=== PATIENT | male | born 1935 | race Caucasian/White ===

== ENCOUNTER 2021-12-27 00:06 | Outpatient (CLI) | payer MEDICARE, OTHER | END 2021-12-27 00:07 | disposition critical access hospital (66) | LOC: EMS 00:06 | DX: I46.9 Cardiac arrest, cause unspecified (principal) | CPT/HCPCS: A0425; A0433 ==

== ENCOUNTER 2021-12-27 00:13 | Emergency (ER) | payer MEDICARE, OTHER ==
--- NOTE | 2021-12-27 00:11 | ED Physician Documentation ---
PD HPI CPR - Stated complaint Stated Complaint: ROSC - History obtained from History obtained from: Family ( (in ED at bedside)), EMS - History of Present Illness Timing - onset: Enter time (approximately 23:20) Preceding symptoms: Unknown (had not been saying anything to about any symptoms) Witnessed: Arrest not witnesssed Fall: No fall Bystander CPR: Bystander CPR EMS findings: Unresponsive, Apneic, Pulseless, Asystole Treatment MEDICAL DELIVERY TECHNICIAN: CPR, Defibrillated, Intubated, Epi, Amiodarone, Atropine, Sodium Bicarb, IV, IO Advanced directive: Full code - Additional information Additional information: JAMARDeborah. says that she saw her going off to bed while she was washing dishes. She says he gave no indication he was having any symptoms and he did not appear unusual in any way. She checked on him approximately 4-5 minutes later and found him on the bed, face up, not breathing. She immediately noticed he was not responding to her; she called 911 and started CPR as they instructed her to do so. EMS estimates they arrived 15 minutes later. They found patient apneic, pulseless, and in asystole. They performed CPR and gave epinephrine per ACLS algorithm. After 3 rounds (given 3 doses of 1mg epinephrine), he was found to be in ventricular fibrillation. He received 2 defibrillating shocks and then had ROSC. He subsequently lost pulses, was given another 1mg epinephrine and 300mg Amiodarone as well as 1 amp sodium bicarb. He then again had ROSC. Shortly before arrival to ED, he had bradycardia for which he was given 1mg atropine. He arrives intubated (ETT) and unresponsive. Did not receive any sedatives nor paralytics en route. Review of Systems Unable to obtain: Intubated PD PAST MEDICAL HISTORY - Past Medical History Cardiovascular: Other (he is on antihypertensives, although says she does not think he has high blood pressure) - Present Medications Home Medications: Ambulatory Orders Medication Instructions Recorded Confirmed Atenolol [Tenormin] 50 mg PO DAILY 12/27/21 12/27/21 Losartan [Cozaar] 50 mg PO DAILY 12/27/21 12/27/21 Metoprolol Succinate [Toprol Xl] 25 mg PO ONCE 12/27/21 12/27/21 Tadalafil [Cialis] 5 mg PO PRN PRN 12/27/21 12/27/21 metFORMIN [Glucophage] 500 mg PO BID 12/27/21 12/27/21 - Allergies Allergies/Adverse Reactions: Allergies Allergy/AdvReac Type Severity Reaction Status Date / Time No Known Drug Allergies Allergy Verified 12/27/21 02:19 - Living Situation Living Situation: reports: With spouse/s.o. Living Arrangement: reports: At home PD ED PE NORMAL - Vitals Vital signs reviewed: Yes - General General: Well developed/nourished - HEENT HEENT: Atraumatic, Other - Cardiac Cardiac: RRR, No murmur - Abdomen Abdomen: Soft, Non distended - Derm Derm: Normal color, Warm and dry - Extremities Extremities: No edema - Neuro Eye Opening: None Motor: None Verbal: None GCS Score: 3 PD ED PE EXPANDED - General General: Unresponsive, Other (intubated) - HEENT HEENT: Other (pupils equal, sluggishly reactive to light, mid-size) - Respiratory Respiratory: Clear to ausultation shravan, Other (intubated) Results - Vitals Vitals: Vital Signs - 24 hr 12/27/21 12/27/21 12/27/21 00:15 00:20 00:34 Temperature Heart Rate 75 57 L Respiratory Rate Blood Pressure 60/47 L O2 Saturation 83 L 100 12/27/21 12/27/21 12/27/21 00:42 00:59 01:00 Temperature 34.8 C L 35.1 C L Heart Rate 80 80 70 Respiratory 15 20 22 Rate Blood Pressure 113/86 H 104/57 L 127/72 O2 Saturation 97 88 L 12/27/21 12/27/21 12/27/21 01:04 01:05 01:16 Temperature 35.1 C L 35 C L Heart Rate 83 79 Respiratory 21 22 20 Rate Blood Pressure 85/62 L O2 Saturation 90 L 91 L 88 L 12/27/21 12/27/21 12/27/21 01:23 01:29 01:32 Temperature 33.8 C L 34 C L 34.4 C L Heart Rate 75 70 65 Respiratory 23 34 H 21 Rate Blood Pressure 94/61 90/54 L O2 Saturation 92 93 93 12/27/21 12/27/21 12/27/21 01:36 01:43 01:47 Temperature Heart Rate 70 Respiratory 20 Rate Blood Pressure 97/58 L 89/56 L 85/48 L O2 Saturation 92 12/27/21 12/27/21 12/27/21 02:00 02:01 02:09 Temperature 34.8 C L 34.8 C L 34.8 C L Heart Rate 68 69 61 Respiratory 25 H 12 17 Rate Blood Pressure 84/52 L 90/49 L 93/52 L O2 Saturation 93 92 95 12/27/21 12/27/21 12/27/21 02:22 02:23 02:27 Temperature 34.8 C L 34.8 C L Heart Rate 65 64 65 Respiratory 16 Rate Blood Pressure 87/56 L 95/62 O2 Saturation 95 98 12/27/21 12/27/21 02:30 03:00 Temperature 34.8 C L 35 C L Heart Rate 58 L 68 Respiratory 16 16 Rate Blood Pressure 95/55 L 110/60 O2 Saturation 98 96 Oxygen O2 Source Mechanical ventilator - EKG (time done) No standard instances Other comments: Other comments (multiple attempts to obtain EKG, but there is too much artifact on EKGs to allow for reasonable interpretation) - Labs Labs: Laboratory Tests 12/27/21 12/27/21 12/27/21 00:21 00:21 00:21 WBC 4.9 RBC 3.83 L Hgb 13.3 L Hct 40.5 L MCV 105.7 H MCH 34.7 H MCHC 32.8 RDW 13.7 Plt Count 119 L MPV 9.3 Neut # (Auto) Not Reportable Lymph # (Auto) Not Reportable [place] # (Auto) Not Reportable Eos # (Auto) Not Reportable Baso # (Auto) Not Reportable Absolute Nucleated RBC Not Reportable Total Counted 100 Band Neuts % (Manual) 5 Abnorm Lymph % (Manual) 0 Nucleated RBC % Not Reportable Neutrophils # (Manual) 1.1 L Lymphocytes # (Manual) 3.6 H Monocytes # (Manual) 0.0 Eosinophils # (Manual) 0.1 Basophils # (Manual) 0.0 Differential Comment MANUAL DIFFERENTIAL WBC Morphology NORMAL APPEARANCE Platelet Estimate DECREASED (<130,000) Platelet Morphology NORMAL APPEARANCE RBC Morph Micro Appear NORMAL APPEARANCE PT 13.0 H INR 1.2 APTT 34.1 H Bld Gas Analysis Time Sample Site ABG pH ABG pCO2 ABG pO2 ABG HCO3 ABG Total CO2 ABG O2 Saturation ABG Base Excess Dharmesh Test Respiration Rate O2 Delivery Device Vent Mode FiO2 Tidal Volume PEEP Sodium 138 Potassium 3.6 Chloride 100 L Carbon Dioxide 19 L Anion Gap 19.0 H BUN 22 H Creatinine 1.4 H Estimated GFR (MDRD) 48 L Glucose 357 H Calcium 8.6 Phosphorus 6.8 H Magnesium 2.1 Total Bilirubin 0.6 AST 125 H ALT 97 H Alkaline Phosphatase 52 Troponin I High Sens Total Protein 6.2 L Albumin 3.4 Globulin 2.8 Albumin/Globulin Ratio 1.2 Lipase 60 H Urine Color Urine Clarity Urine pH Ur Specific [place] Urine Protein Urine Glucose (UA) Urine Ketones Urine Occult Blood Urine Nitrite Urine Bilirubin Urine Urobilinogen Ur Leukocyte Esterase Urine RBC Urine WBC Ur Squamous Epith Cells Urine Bacteria Ur Microscopic Review Urine Culture Comments Nasal Adenovirus (PCR) Nasal B. parapertussis DNA (PCR) Nasal Coronavir 229E PCR Nasal Coronavir HKU1 PCR Nasal Coronavir NL63 PCR Nasal Coronavir OC43 PCR Nasal Enterovir/Rhinovir PCR Nasal Influenza B PCR Nasal Influenza A PCR Nasal Parainfluen 1 PCR Nasal Parainfluen 2 PCR Nasal Parainfluen 3 PCR Nasal Parainfluen 4 PCR Nasal RSV (PCR) Nasal B.pertussis DNA PCR Nasal C.pneumoniae (PCR) [place] Human Metapneumo PCR Nasal M.pneumoniae (PCR) Nasal SARS-CoV-2 (PCR) 12/27/21 12/27/21 12/27/21 00:21 01:00 02:06 WBC RBC Hgb Hct MCV MCH MCHC RDW Plt Count MPV Neut # (Auto) Lymph # (Auto) [place] # (Auto) Eos # (Auto) Baso # (Auto) Absolute Nucleated RBC Total Counted Band Neuts % (Manual) Abnorm Lymph % (Manual) Nucleated RBC % Neutrophils # (Manual) Lymphocytes # (Manual) Monocytes # (Manual) Eosinophils # (Manual) Basophils # (Manual) Differential Comment WBC Morphology Platelet Estimate Platelet Morphology RBC Morph Micro Appear PT INR APTT Bld Gas Analysis Time 0214 Sample Site RIGHT RADIAL ABG pH 7.17 L* ABG pCO2 42 ABG pO2 73 L ABG HCO3 14.9 L ABG Total CO2 16.2 L ABG O2 Saturation 90 L ABG Base Excess -13.1 L Dharmesh Test POSITIVE Respiration Rate 16 O2 Delivery Device VENTILATOR Vent Mode ASSIST/CONTROL FiO2 100.00 Tidal Volume 555 PEEP 8 Sodium Potassium Chloride Carbon Dioxide Anion Gap BUN Creatinine Estimated GFR (MDRD) Glucose Calcium Phosphorus Magnesium Total Bilirubin AST ALT Alkaline Phosphatase Troponin I High Sens 65.6 H* Total Protein Albumin Globulin Albumin/Globulin Ratio Lipase Urine Color Urine Clarity Urine pH Ur Specific [place] Urine Protein Urine Glucose (UA) Urine Ketones Urine Occult Blood Urine Nitrite Urine Bilirubin Urine Urobilinogen Ur Leukocyte Esterase Urine RBC Urine WBC Ur Squamous Epith Cells Urine Bacteria Ur Microscopic Review Urine Culture Comments Nasal Adenovirus (PCR) NOT DETECTED Nasal B. parapertussis DNA (PCR) NOT DETECTED Nasal Coronavir 229E PCR NOT DETECTED Nasal Coronavir HKU1 PCR NOT DETECTED Nasal Coronavir NL63 PCR NOT DETECTED Nasal Coronavir OC43 PCR NOT DETECTED Nasal Enterovir/Rhinovir PCR NOT DETECTED Nasal Influenza B PCR NOT DETECTED Nasal Influenza A PCR NOT DETECTED Nasal Parainfluen 1 PCR NOT DETECTED Nasal Parainfluen 2 PCR NOT DETECTED Nasal Parainfluen 3 PCR NOT DETECTED Nasal Parainfluen 4 PCR NOT DETECTED Nasal RSV (PCR) NOT DETECTED Nasal B.pertussis DNA PCR NOT DETECTED Nasal C.pneumoniae (PCR) NOT DETECTED [place] Human Metapneumo PCR NOT DETECTED Nasal M.pneumoniae (PCR) NOT DETECTED Nasal SARS-CoV-2 (PCR) NOT DETECTED 12/27/21 02:15 WBC RBC Hgb Hct MCV MCH MCHC RDW Plt Count MPV Neut # (Auto) Lymph # (Auto) [place] # (Auto) Eos # (Auto) Baso # (Auto) Absolute Nucleated RBC Total Counted Band Neuts % (Manual) Abnorm Lymph % (Manual) Nucleated RBC % Neutrophils # (Manual) Lymphocytes # (Manual) Monocytes # (Manual) Eosinophils # (Manual) Basophils # (Manual) Differential Comment WBC Morphology Platelet Estimate Platelet Morphology RBC Morph Micro Appear PT INR APTT Bld Gas Analysis Time Sample Site ABG pH ABG pCO2 ABG pO2 ABG HCO3 ABG Total CO2 ABG O2 Saturation ABG Base Excess Dharmesh Test Respiration Rate O2 Delivery Device Vent Mode FiO2 Tidal Volume PEEP Sodium Potassium Chloride Carbon Dioxide Anion Gap BUN Creatinine Estimated GFR (MDRD) Glucose Calcium Phosphorus Magnesium Total Bilirubin AST ALT Alkaline Phosphatase Troponin I High Sens Total Protein Albumin Globulin Albumin/Globulin Ratio Lipase Urine Color LT RED Urine Clarity CLEAR Urine pH 6.0 Ur Specific [place] 1.015 Urine Protein 100 H Urine Glucose (UA) 250 H Urine Ketones NEGATIVE Urine Occult Blood LARGE H Urine Nitrite POSITIVE H Urine Bilirubin NEGATIVE Urine Urobilinogen 0.2 (NORMAL) Ur Leukocyte Esterase NEGATIVE Urine RBC TNTC H Urine WBC 0-3 Ur Squamous Epith Cells RARE Squamous Urine Bacteria Few Ur Microscopic Review INDICATED Urine Culture Comments INDICATED Nasal Adenovirus (PCR) Nasal B. parapertussis DNA (PCR) Nasal Coronavir 229E PCR Nasal Coronavir HKU1 PCR Nasal Coronavir NL63 PCR Nasal Coronavir OC43 PCR Nasal Enterovir/Rhinovir PCR Nasal Influenza B PCR Nasal Influenza A PCR Nasal Parainfluen 1 PCR Nasal Parainfluen 2 PCR Nasal Parainfluen 3 PCR Nasal Parainfluen 4 PCR Nasal RSV (PCR) Nasal B.pertussis DNA PCR Nasal C.pneumoniae (PCR) [place] Human Metapneumo PCR Nasal M.pneumoniae (PCR) Nasal SARS-CoV-2 (PCR) - Rads (name of study) chest xray Radiology: Prelim report reviewed, See rad report CT head Radiology: Prelim report reviewed, See rad report PD MEDICAL DECISION MAKING - ED course Complexity details: reviewed results, re-evaluated patient, considered differential, d/w family ED course: presents intubated after cardiopulmonary arrest. Patient's says he has no known cardiac history. He required several rounds of epinephrine, along with amiodarone, two defibrillating shocks, sodium bicarbinate, and atropine. He is put on an epinephrine drip in ED which required some upward titration for hypotension (which responded to the increased rate). He also exhibited movement mid-way through ED stay, not purposeful movement but appeared to be "bucking the tube", and for this he is given propofol as well as one-time dose of versed. D/W Dr. Kern, radarman at [facility]. She requests CTH and will accept transfer if there are no remarkable findings on this study (such as ICH or evidence of acute anoxic injury). The CT shows age-related changes and chronic ischemic changes. He has mildly elevated hs-tNc, as well as mild elevations of bun/creatinine, lipase, AST/ALT. No previous results for comparison. Given the situation, this might represent anoxic injury to multiple organs. Dr. Kern accepts transfer to [facility] ICU. He is sent by [employer]. He maintained pulses and adequate blood pressures throughout ED stay (some readings of 80s SBP which responded to increase in epinephrine drip rate) - Critical Care Time(min): 40 Time Includes: Direct patient care, Reassess patient, Document care, Coordinate care, Family consult for tx dec, See progress note Data interpretation: Labs, Pulse ox, ABG, CXR, See progress note Procedures included in critical care time: Peripheral IV, Ventilator mgmt, See progress note Procedures excluded from critical care time: See progress note Departure - Departure Disposition: 02 Transfer Acute Care Hosp Clinical Impression: Cardiopulmonary arrest Condition: Critical Discharge Date/Time: 12/27/21 03:37
[2021-12-27] MEDS ORDERED: SODIUM CHLORIDE 0.9% 1,000 ML IV STA ×3 (00:27→01:08)
[2021-12-27] MEDS ORDERED: EPINEPHrine 4 MG in DEXTROSE 5% 246 ML IV STA (00:28)
[2021-12-27] MEDS ORDERED: EPINEPHrine 1 MG/ML AMP ONE (00:35)
[2021-12-27 00:40] LABS: BASOPHILS % (AUTO) 0.4 %; EOSINOPHILS % (AUTO) 2.2 %; HCT - HEMATOCRIT 40.5 % (42.0-52.0); HGB - HEMOGLOBIN 13.3 g/dL (14.0-18.0); LYMPHOCYTES % (AUTO) 73.3 %; MEAN CORPUSCULAR HEMOGLOBIN 34.7 pg (27.0-31.0); MEAN CORPUSCULAR HGB CONC 32.8 g/dL (32.0-36.0); MEAN CORPUSCULAR VOLUME 105.7 fL (80.0-94.0); MEAN PLATELET VOLUME 9.3 fL (7.4-11.4); MONOCYTES % (AUTO) 2.9 %; NEUTROPHILS % (AUTO) 17.9 %; PLT - PLATELET COUNT 119 10^3/uL (130-450); RED BLOOD COUNT 3.83 10^6/uL (4.70-6.10); RED CELL DISTRIBUTION WIDTH 13.7 % (12.0-15.0); WHITE BLOOD COUNT 4.9 x10^3/uL (4.8-10.8)
[2021-12-27 00:42] LABS: INR 1.2 (0.8-1.2)
[2021-12-27 00:45] LABS: ALBUMIN 3.4 g/dL (3.2-5.5); ALBUMIN/GLOBULIN RATIO 1.2 (1.0-2.2); BILIRUBIN,TOTAL 0.6 mg/dL (0.2-1.0); CALCIUM 8.6 mg/dL (8.5-10.3); CREATININE 1.4 mg/dL (0.6-1.2); MAGNESIUM 2.1 mg/dL (1.7-2.8); PHOSPHORUS 6.8 mg/dL (2.5-4.6); POTASSIUM 3.6 mmol/L (3.5-5.0); TOTAL PROTEIN 6.2 g/dL (6.7-8.2)
[2021-12-27] MEDS ORDERED: PROPOFOL 1000 MG/100 ML 1,000 MG/100 ML BOTTLE IV STA (00:45)
[2021-12-27 00:47] LABS: ABNORMAL LYMPHS % (MANUAL) 0 %
[2021-12-27 00:49] LABS: PARTIAL THROMBOPLASTIN TIME 34.1 secs (24.9-33.3)
[2021-12-27] MEDS ORDERED: PROPOFOL 1000 MG/100 ML 1,000 MG/100 ML BOTTLE IV ONE (00:51)
[2021-12-27 00:54] LABS: BAND NEUTROPHILS % (MANUAL) 5 %; EOSINOPHILS # (MANUAL) 0.1 10^3/uL (0-0.7); LYMPHOCYTES # (MANUAL) 3.6 10^3/uL (1.5-3.5); LYMPHOCYTES % (MANUAL) 74 %; NEUTROPHILS # (MANUAL) 1.1 10^3/uL (1.5-6.6); RBC MORPHOLOGY (MULTIPLE) NORMAL APPEARANCE (NORMAL)
[2021-12-27 00:55] LABS: DIFFERENTIAL COMMENT MANUAL DIFFERENTIAL; PLATELET ESTIMATE, MANUAL DECREASED (<130,000) (NORMAL); PLATELET MORPHOLOGY NORMAL APPEARANCE (NORMAL); WBC MORPHOLOGY (MULTIPLE) NORMAL APPEARANCE (NORMAL)
--- NOTE | 2021-12-27 01:13 | XRAY Report ---
PROCEDURE: Chest 1 View X-Ray INDICATIONS: post-cardiac arrest TECHNIQUE: One view of the chest was acquired. COMPARISON: None FINDINGS: Surgical changes and devices: Endotracheal tube tip 8 cm above the jason. Nasogastric tube tip at th e GE junction. Multiple overlying leads and wires present. Lungs and pleura: Heart size enlarged. Moderate vascular congestion. No pneumothorax Mediastinum: Mediastinal contours appear normal. Heart size is normal. Bones and chest wall: No suspicious bony lesions. Overlying soft tissues appear unremarkable. IMPRESSION: 1. Endotracheal tube tip 8 cm above the jason. 2. Nasogastric tube tip at the GE junction. Recommend 15 to 15 cm of advancement. 3. Cardiomegaly and moderate vascular congestion Reviewed by: Guilherme Paez MD on 12/27/2021 12:12 AM IRINA Approved by: Guilherme Paez MD on 12/27/2021 12:12 AM IRINA Station ID: [id number]
[2021-12-27] MEDS ORDERED: MIDAZOLAM 2 MG/2 ML VIAL IVP STA (01:29)
[2021-12-27 01:56] LABS: B. PARAPERTUSSIS- RESP PCR PAN NOT DETECTED; B. PERTUSSIS- RESP PCR PANEL NOT DETECTED; C. PNEUMONIAE- RESP PCR PANEL NOT DETECTED; CORONAVIRUS 229E-RESP PCR NOT DETECTED; CORONAVIRUS HKU1-RESP PCR NOT DETECTED; CORONAVIRUS NL63-RESP PCR NOT DETECTED; CORONAVIRUS OC43-RESP PCR NOT DETECTED; HUMAN METAPNEUMOVIRUS NOT DETECTED; INFLUENZA A- RESP PCR PANEL NOT DETECTED; INFLUENZA B - RESP PCR PANEL NOT DETECTED; M. PNEUMONIAE- RESP PCR PANEL NOT DETECTED; PARAINFLUENZA VIRUS 1 NOT DETECTED; PARAINFLUENZA VIRUS 2 NOT DETECTED; PARAINFLUENZA VIRUS 3 NOT DETECTED; PARAINFLUENZA VIRUS 4 NOT DETECTED; RHINOVIRUS/ENTEROVIRUS NOT DETECTED; RSV- RESP PCR PANEL NOT DETECTED; SARS-CoV-2 -RESP PCR PANEL NOT DETECTED
--- NOTE | 2021-12-27 02:04 | CT Report ---
PROCEDURE: CT brain without contrast INDICATIONS: post-CPR. Altered mental status TECHNIQUE: Noncontrast 4.5 mm thick angled axial sections acquired from the foramen magnum to the vertex. For r adiation dose reduction, the following was used: automated exposure control, adjustment of mA and/or kV according to patient size. COMPARISON: None. FINDINGS: Image quality: Excellent. CSF spaces: Basal cisterns are patent. No extra-axial fluid collections. Ventricles are normal in size and shape. Brain: No midline shift. No intracranial masses or hemorrhage. [place]-white matter interface is with in appropriate limits. Cerebral and cerebellar atrophy noted Skull and face: Calvarium and visualized facial bones are intact, without suspicious lesions. Bilat eral intraocular lens replacements noted. Sinuses: Visualized sinuses and mastoids are clear. IMPRESSION: Intracranial atrophy and chronic ischemic change without acute hemorrhage or mass effect . Reviewed by: Guilherme Paez MD on 12/27/2021 1:02 AM IRINA Approved by: Guilherme Paez MD on 12/27/2021 1:02 AM IR[place] Station ID: [id number]
[2021-12-27 02:24] LABS: ABG BASE EXCESS -13.1 mmol/L (-2.0-3.0); ABG HCO3 14.9 mmol/L (22.0-26.0); ABG OXYGEN SATURATION 90 % (94-98); ABG PCO2 42 mmHg (34-45); ABG PO2 73 mmHg (80-100); ABG TCO2 16.2 MMOL/L (21.0-29.0); ALLEN TEST POSITIVE
[2021-12-27 02:27] LABS: ABG MODE OF VENTILATION ASSIST/CONTROL; ABG PH 7.17 (7.35-7.45); ABG RESPIRATORY RATE 16 b/min
[2021-12-27 02:31] LABS: BILIRUBIN,URINE NEGATIVE (NEGATIVE); GLUCOSE, URINE (UA) 250 mg/dL (NEGATIVE); KETONES,URINE (UA) NEGATIVE (NEGATIVE); LEUKOCYTE ESTERASE, URINE NEGATIVE (NEGATIVE); NITRITE,URINE POSITIVE (NEGATIVE); OCCULT BLOOD,URINE LARGE (NEGATIVE); PROTEIN,URINE 100 mg/dL (NEGATIVE); UROBILINOGEN,URINE 0.2 (NORMAL) E.U./dL (NORMAL)
[2021-12-27 02:38] LABS: BACTERIA,URINE Few /HPF (None Seen); CLARITY,URINE CLEAR (CLEAR); RBC,URINE TNTC /HPF (0-5); SQUAMOUS EPITHELIAL CELL,UR RARE Squamous (<= Few); WBC,URINE 0-3 /HPF (0-3)
[2021-12-27 03:23] VITALS: BP 110/60
== END 2021-12-27 03:37 | disposition short-term general hospital (02) ==
LOC: EDBD → ED 00:13
DX: I46.9 Cardiac arrest, cause unspecified (principal)
CPT/HCPCS: 36415; 36600; 51702; 80053; 81001; 81003; 82803; 83690; 83735; 84100; 84484; 85025; 85610; 85730; 87086; 87633; 93005; 99291